=== PATIENT | male | born 1975 | race Caucasian/White ===

== ENCOUNTER 2021-08-05 23:46 | Inpatient (IN) | payer SELFPAY ==
[~2021-08-05] VITALS: Ht 177.8 cm; Wt 137.0 kg
[2021-08-06] VITALS (7 sets, daily range): BP systolic 102–162; BP diastolic 50–111
[2021-08-06] MEDS ORDERED: METOPROLOL TARTRATE INJ 1 MG/ML VIAL IV ONE (00:15)
[2021-08-06 00:31] LABS: BASOPHILS # (AUTO) 0.1 (0.0-0.1); BASOPHILS % 0.8 % (0.0-1.0); EOSINOPHILS # (AUTO) 0.2 (0.0-0.4); EOSINOPHILS % 2.1 % (0.0-6.0); HEMATOCRIT 25.6 % (38.2-49.6); LYMPHOCYTES # (AUTO) 2.1 (1.0-3.2); LYMPHOCYTES % 27.4 % (18.0-39.1); MEAN CORPUSCULAR HEMOGLOBIN 18.3 pg (28-32); MEAN CORPUSCULAR HGB CONC 26.2 g/dL (31-35); MEAN CORPUSCULAR VOLUME 69.9 fL (81-99); MONOCYTES % 12.9 % (4.4-11.3); NEUTROPHILS # (AUTO) 4.3 (2.1-6.9); NEUTROPHILS % 56.5 % (38.7-80.0); PLATELET COUNT 252 x10e3/uL (140-360); RED BLOOD COUNT 3.66 x10e6/uL (4.3-5.7)
[2021-08-06 00:35] LABS: INR 1.35; PARTIAL THROMBOPLASTIN TIME 33.5 seconds (23.8-35.5); PROTHROMBIN TIME 17.8 seconds (11.9-14.5)
[2021-08-06 00:43] LABS: HEMOGLOBIN 6.7 g/dL (14.0-18.0)
[2021-08-06 00:45] LABS: ALBUMIN 2.5 g/dL (3.5-5.0); ALBUMIN/GLOBULIN RATIO 0.5 (0.8-2.0); ANION GAP 15.4 mmol/L (8-16); CALCIUM 7.7 mg/dL (8.4-10.2); CREATININE, SERUM 0.76 mg/dL (0.72-1.25); POTASSIUM 3.4 mmol/L (3.5-5.1)
[2021-08-06 00:51] LABS: CREATINE KINASE MB 0.9 ng/mL (0-5.0)
[2021-08-06] MEDS ORDERED: SODIUM CHLORIDE 0.9% 250ML 250 ML IV ONE (01:00)
[2021-08-06] MEDS ORDERED: FUROSEMIDE INJ 10 MG/ML 2 ML VIAL IV PRN (01:00)
[2021-08-06] MEDS ORDERED: POTASSIUM CHLORIDE 20 MEQ TAB CR PO STA (01:19)
[2021-08-06] MEDS: ONDANSETRON HCL INJ 2MG/ML 2ML 2 MG/ML VIAL IV PRN ×3 (01:45→20:59)
[2021-08-06] MEDS: Morphine 4mg Syringe 4 MG/ML INJ IV PRN ×3 (01:45→20:59)
[2021-08-06 03:08] LABS: FERRITIN 7.39 ng/mL (21.81-274.66)
[2021-08-06 10:06] LABS: CREATINE KINASE MB 0.8 ng/mL (0-5.0)
[2021-08-06] MEDS ORDERED: SODIUM CHLORIDE 0.9% 250ML 250 ML ONE (10:32)
[2021-08-06] MEDS ORDERED: HYDRALAZINE HCL 20 MG/ML VIAL IV PRN (10:45)
[2021-08-06] MEDS ORDERED: ALBUMIN 25% 12.5GM 50ML 300 ML IV ONE (13:13)
[2021-08-06 16:53] LABS: BODY FLUID APPEARANCE SL.CLOUDY; BODY FLUID COLOR YELLOW; BODY FLUID TYPE PERITONEAL
[2021-08-06 16:54] LABS: RBC,BODY FLUID < 2000 cells/uL; WBC,BODY FLUID 88 cells/uL
[2021-08-06 17:30] LABS: HEMATOCRIT 23.4 % (38.2-49.6)
[2021-08-06 17:32] LABS: HEMOGLOBIN 6.4 g/dL (14.0-18.0)
[2021-08-06 17:55] LABS: CREATINE KINASE MB 0.8 ng/mL (0-5.0)
[2021-08-06] MEDS ORDERED: SODIUM CHLORIDE 0.9% 250ML 250 ML IV NR (18:45)
[2021-08-06 19:44] LABS: LYMPHOCYTES,BODY FLUID 20 %; MONO/MACROPHG,BODY FLUID 70 %; NEUTROPHILS,BODY FLUID 2 %; OTHER CELLS,BODY FLUID 8 %
[2021-08-07] VITALS (8 sets, daily range): BP systolic 94–127; BP diastolic 52–77
[2021-08-07] MEDS ORDERED: SPIRONOLACTONE 25 MG TAB PO ONE (00:30)
[2021-08-07] MEDS ORDERED: FUROSEMIDE INJ 10 MG/ML 4 ML VIAL IV ONE (00:30)
[2021-08-07] MEDS ORDERED: PHYTONADIONE 10 MG/ML AMP IV ONE ×2 (01:00→09:00)
[2021-08-07] MEDS ORDERED: PHYTONADIONE 10MG/ML 20 MG in SODIUM CHLORIDE 0.9% 100 ML SC ONE (01:00)
[2021-08-07] MEDS ORDERED: SODIUM CHLORIDE 0.9% 250ML 250 ML ONE (03:29)
[2021-08-07] MEDS: FUROSEMIDE INJ 10 MG/ML 4 ML VIAL IV SCH ×3 (06:28→17:34)
[2021-08-07] MEDS ORDERED: SODIUM CHLORIDE 0.9% 50ML 50 ML ONE (08:45)
[2021-08-07] MEDS ORDERED: SPIRONOLACTONE 25 MG TAB PO SCH (09:00)
[2021-08-07] MEDS ORDERED: FUROSEMIDE 20 MG TAB PO SCH (09:00)
[2021-08-07] MEDS ORDERED: PHYTONADIONE 10MG/ML 20 MG in SODIUM CHLORIDE 0.9% 100 ML IV ONE (09:00)
[2021-08-07] MEDS: IRON SUCROSE 100 MG in SODIUM CHLORIDE 0.9% 100 ML 100 ML IV SCH (09:01)
[2021-08-07] MEDS: SPIRONOLACTONE 25 MG TAB PO SCH ×2 (09:01→17:34)
[2021-08-07 09:59] LABS: BASOPHILS # (AUTO) 0.1 (0.0-0.1); BASOPHILS % 0.9 % (0.0-1.0); EOSINOPHILS # (AUTO) 0.1 (0.0-0.4); EOSINOPHILS % 2.1 % (0.0-6.0); HEMATOCRIT 29.2 % (38.2-49.6); HEMOGLOBIN 8.2 g/dL (14.0-18.0); LYMPHOCYTES # (AUTO) 1.8 (1.0-3.2); LYMPHOCYTES % 26.8 % (18.0-39.1); MEAN CORPUSCULAR HGB CONC 28.1 g/dL (31-35); MEAN CORPUSCULAR VOLUME 71.4 fL (81-99); MONOCYTES % 15.3 % (4.4-11.3); NEUTROPHILS # (AUTO) 3.6 (2.1-6.9); NEUTROPHILS % 54.6 % (38.7-80.0); PLATELET COUNT 184 x10e3/uL (140-360); RED BLOOD COUNT 4.09 x10e6/uL (4.3-5.7); RED CELL DISTRIBUTION WIDTH 19.4 % (11.7-14.4)
[2021-08-07 10:38] LABS: ALBUMIN 2.9 g/dL (3.5-5.0); ALBUMIN/GLOBULIN RATIO 0.9 (0.8-2.0); ANION GAP 11.1 mmol/L (8-16); CALCIUM 8.2 mg/dL (8.4-10.2); CREATININE, SERUM 0.8 mg/dL (0.72-1.25); POTASSIUM 3.1 mmol/L (3.5-5.1)
[2021-08-07 11:00] LABS: MAGNESIUM 1.5 MG/DL (1.3-2.1); PHOSPHORUS 2.9 MG/DL (2.3-4.7)
[2021-08-07] MEDS ORDERED: ALBUMIN 25% 12.5GM 50ML 200 ML IV ONE (11:16)
[2021-08-07 11:24] LABS: CREATINE KINASE MB 1.2 ng/mL (0-5.0)
[2021-08-07] MEDS ORDERED: ALBUMIN 25% 12.5GM 50ML 100 ML IV ONE (12:10)
[2021-08-07] MEDS: ACETAMINOPHEN/CODEINE 300MG - 30MG TAB PO PRN ×2 (13:13→21:18)
[2021-08-07] MEDS ORDERED: POTASSIUM CHLORIDE 20 MEQ TAB CR PO ONE (14:45)
[2021-08-07 17:06] LABS: BODY FLUID APPEARANCE SL.CLOUDY; BODY FLUID COLOR YELLOW; BODY FLUID TYPE PERITONEAL
[2021-08-07 17:08] LABS: RBC,BODY FLUID < 2000 cells/uL; WBC,BODY FLUID 141 cells/uL
[2021-08-07 19:51] LABS: LYMPHOCYTES,BODY FLUID 14 %; MONO/MACROPHG,BODY FLUID 62 %; NEUTROPHILS,BODY FLUID 1 %; OTHER CELLS,BODY FLUID 23 %
[2021-08-08] VITALS (9 sets, daily range): BP systolic 106–124; BP diastolic 56–73
[2021-08-08] MEDS: FUROSEMIDE INJ 10 MG/ML 4 ML VIAL IV SCH ×4 (00:27→17:48)
[2021-08-08] MEDS: Morphine 4mg Syringe 4 MG/ML INJ IV PRN ×4 (00:32→21:15)
[2021-08-08 06:27] LABS: HEMATOCRIT 30.6 % (38.2-49.6); HEMOGLOBIN 8.8 g/dL (14.0-18.0); LYMPHOCYTES % 29.7 % (18.0-39.1); MEAN CORPUSCULAR HEMOGLOBIN 20.4 pg (28-32); MEAN CORPUSCULAR HGB CONC 28.8 g/dL (31-35); MEAN CORPUSCULAR VOLUME 70.8 fL (81-99); NEUTROPHILS % 53.3 % (38.7-80.0); PLATELET COUNT 186 x10e3/uL (140-360); RED BLOOD COUNT 4.32 x10e6/uL (4.3-5.7); RED CELL DISTRIBUTION WIDTH 20.1 % (11.7-14.4)
[2021-08-08 06:28] LABS: BASOPHILS # (AUTO) 0.1 (0.0-0.1); BASOPHILS % 0.7 % (0.0-1.0); EOSINOPHILS # (AUTO) 0.1 (0.0-0.4); EOSINOPHILS % 1.9 % (0.0-6.0); MONOCYTES # (AUTO) 0.9 (0.2-0.8); MONOCYTES % 13.8 % (4.4-11.3); NEUTROPHILS # (AUTO) 3.6 (2.1-6.9)
[2021-08-08 06:58] LABS: ANION GAP 13.2 mmol/L (8-16); CALCIUM 8.7 mg/dL (8.4-10.2); CREATININE, SERUM 0.84 mg/dL (0.72-1.25); MAGNESIUM 1.6 MG/DL (1.3-2.1); PHOSPHORUS 3.3 MG/DL (2.3-4.7); POTASSIUM 3.2 mmol/L (3.5-5.1)
[2021-08-08] MEDS: SPIRONOLACTONE 25 MG TAB PO SCH ×2 (08:59→17:48)
[2021-08-08] MEDS: IRON SUCROSE 100 MG in SODIUM CHLORIDE 0.9% 100 ML 100 ML IV SCH (09:37)
[2021-08-08] MEDS: ONDANSETRON HCL INJ 2MG/ML 2ML 2 MG/ML VIAL IV PRN (10:29)
[2021-08-08] MEDS ORDERED: POTASSIUM CHLORIDE 20 MEQ TAB CR PO ONE (10:30)
[2021-08-09] VITALS (10 sets, daily range): BP systolic 110–132; BP diastolic 66–73
[2021-08-09] MEDS ORDERED: BISACODYL 5 MG TAB EC PO ONE ×3 (00:45→23:00)
[2021-08-09] MEDS: FUROSEMIDE INJ 10 MG/ML 4 ML VIAL IV SCH ×4 (01:05→17:46)
[2021-08-09] MEDS: Morphine 4mg Syringe 4 MG/ML INJ IV PRN ×2 (01:40→20:03)
[2021-08-09 06:24] LABS: BASOPHILS # (AUTO) 0.1 (0.0-0.1); BASOPHILS % 0.7 % (0.0-1.0); EOSINOPHILS # (AUTO) 0.2 (0.0-0.4); EOSINOPHILS % 2.3 % (0.0-6.0); HEMATOCRIT 30.8 % (38.2-49.6); HEMOGLOBIN 8.8 g/dL (14.0-18.0); LYMPHOCYTES # (AUTO) 1.9 (1.0-3.2); LYMPHOCYTES % 24.8 % (18.0-39.1); MEAN CORPUSCULAR HEMOGLOBIN 20.4 pg (28-32); MEAN CORPUSCULAR HGB CONC 28.6 g/dL (31-35); MEAN CORPUSCULAR VOLUME 71.3 fL (81-99); MONOCYTES # (AUTO) 1.3 (0.2-0.8); MONOCYTES % 17.6 % (4.4-11.3); NEUTROPHILS # (AUTO) 4.1 (2.1-6.9); NEUTROPHILS % 54.2 % (38.7-80.0); PLATELET COUNT 170 x10e3/uL (140-360); RED BLOOD COUNT 4.32 x10e6/uL (4.3-5.7); RED CELL DISTRIBUTION WIDTH 21.7 % (11.7-14.4)
[2021-08-09 06:38] LABS: ANION GAP 11.4 mmol/L (8-16); CALCIUM 8.4 mg/dL (8.4-10.2); CREATININE, SERUM 0.84 mg/dL (0.72-1.25); MAGNESIUM 1.6 MG/DL (1.3-2.1); PHOSPHORUS 4.2 MG/DL (2.3-4.7); POTASSIUM 3.4 mmol/L (3.5-5.1)
[2021-08-09] MEDS: SPIRONOLACTONE 25 MG TAB PO SCH ×2 (08:59→17:46)
[2021-08-09] MEDS: IRON SUCROSE 100 MG in SODIUM CHLORIDE 0.9% 100 ML 100 ML IV SCH (09:38)
[2021-08-09 09:46] LABS: ANISOCYTOSIS MODERATE; BAND NEUTROPHILS % (MANUAL) 1 %; EOSINOPHILS % (MANUAL) 1 % (0-7); LYMPHOCYTES % (MANUAL) 26 % (19-48); MONOCYTES % (MANUAL) 14 % (3.4-9.0); NEUTROPHILS % (MANUAL) 57 % (40-74); PLATELET ESTIMATE ADEQUATE; PLATELET MORPHOLOGY COMMENT FEW LARGE
[2021-08-09 09:47] LABS: HYPOCHROMASIA MODERATE; MICROCYTOSIS MODERATE; RBC MORPHOLOGY COMMENT ABNORMAL
[2021-08-09] MEDS ORDERED: ALBUMIN 25% 12.5GM 50ML 150 ML IV ONE (09:56)
[2021-08-09] MEDS: ACETAMINOPHEN/CODEINE 300MG - 30MG TAB PO PRN (12:48)
[2021-08-09] MEDS: THIAMINE HCL 100 MG TAB PO SCH (17:46)
[2021-08-09] MEDS: FOLIC ACID 1 MG TAB PO SCH (17:46)
[2021-08-09] MEDS: ONDANSETRON HCL INJ 2MG/ML 2ML 2 MG/ML VIAL IV PRN (20:03)
[2021-08-09] MEDS ORDERED: ALDACTONE25 MG PO (21:47)
[2021-08-09] MEDS ORDERED: LASIX20 MG PO (21:48)
[2021-08-09] MEDS ORDERED: POTASSIUM CHLORIDE 20 MEQ TAB CR PO ONE (23:00)
[2021-08-10] MEDS ORDERED: POTASSIUM CHLORIDE 20 MEQ TAB CR PO ONE (00:30)
[2021-08-10] MEDS: ONDANSETRON HCL INJ 2MG/ML 2ML 2 MG/ML VIAL IV PRN ×2 (01:00→06:24)
[2021-08-10] MEDS: Morphine 4mg Syringe 4 MG/ML INJ IV PRN ×2 (01:00→06:23)
[2021-08-10 01:03] VITALS: BP 139/85
[2021-08-10] MEDS ORDERED: FUROSEMIDE 40 MG TAB PO SCH (06:00)
[2021-08-10 06:01] VITALS: BP 125/73
[2021-08-10 06:43] LABS: BASOPHILS % 0.5 % (0.0-1.0); EOSINOPHILS # (AUTO) 0.2 (0.0-0.4); EOSINOPHILS % 1.9 % (0.0-6.0); HEMATOCRIT 34.1 % (38.2-49.6); HEMOGLOBIN 9.6 g/dL (14.0-18.0); LYMPHOCYTES % 25.5 % (18.0-39.1); MEAN CORPUSCULAR HEMOGLOBIN 20.3 pg (28-32); MEAN CORPUSCULAR HGB CONC 28.2 g/dL (31-35); MEAN CORPUSCULAR VOLUME 72.2 fL (81-99); MONOCYTES # (AUTO) 1.1 (0.2-0.8); MONOCYTES % 14.1 % (4.4-11.3); NEUTROPHILS # (AUTO) 4.6 (2.1-6.9); NEUTROPHILS % 57.7 % (38.7-80.0); PLATELET COUNT 192 x10e3/uL (140-360); RED BLOOD COUNT 4.72 x10e6/uL (4.3-5.7); RED CELL DISTRIBUTION WIDTH 22.7 % (11.7-14.4)
[2021-08-10 07:11] LABS: ALBUMIN 3.6 g/dL (3.5-5.0); ALBUMIN/GLOBULIN RATIO 0.9 (0.8-2.0); ANION GAP 12.9 mmol/L (8-16); CALCIUM 9.2 mg/dL (8.4-10.2); CREATININE, SERUM 0.98 mg/dL (0.72-1.25); POTASSIUM 3.9 mmol/L (3.5-5.1)
[2021-08-10 08:11] VITALS: BP_SYST 117; BP_SYST 125; BP_DIAS 68; BP_DIAS 73
[2021-08-10] MEDS: SPIRONOLACTONE 25 MG TAB PO SCH (08:51)
[2021-08-10] MEDS: IRON SUCROSE 100 MG in SODIUM CHLORIDE 0.9% 100 ML 100 ML IV SCH (08:51)
[2021-08-10] MEDS: FOLIC ACID 1 MG TAB PO SCH (08:52)
[2021-08-10] MEDS: THIAMINE HCL 100 MG TAB PO SCH (08:52)
[2021-08-10 11:13] VITALS: BP 114/68
[2021-08-10] MEDS ORDERED: VITAMIN B-1100 M1 PO (11:15)
[2021-08-10] MEDS ORDERED: FOLIC ACID-VIT1 EACH PO (11:15)
[2021-08-10 12:24] VITALS: BP 114/68
[2021-08-10 14:05] VITALS: BP 114/68
== END 2021-08-10 14:40 | disposition home or self-care (01) | DRG 434 ==
LOC: ER 23:55 → ERHOLD 08-06 00:55 → MED/SURG 08-06 08:53
PROVIDERS: ADMIT Internal Medicine; ATTEND Internal Medicine
PROC: 0W9G3ZZ Drainage of Peritoneal Cavity, Percutaneous Approach (ICD-10-PCS; principal; 2021-08-06)
PROC: 30233N1 Transfusion of Nonautologous Red Blood Cells into Peripheral Vein, Percutaneous Approach (ICD-10-PCS; 2021-08-06)
PROC: 0W9G3ZZ Drainage of Peritoneal Cavity, Percutaneous Approach (ICD-10-PCS; 2021-08-07)
PROC: 0W9G3ZZ Drainage of Peritoneal Cavity, Percutaneous Approach (ICD-10-PCS; 2021-08-07)
DX: K70.31 Alcoholic cirrhosis of liver with ascites (principal); I10 Essential (primary) hypertension; E87.6 Hypokalemia; R60.0 Localized edema; F10.11 Alcohol abuse, in remission; D63.8 Anemia in other chronic diseases classified elsewhere
CPT/HCPCS: 36415; 49083; 71045; 76700; 80048; 80053; 82040; 82105; 82550; 82553; 82607; 82728; 82746; 83540; 83690; 83735; 83880; 84100; 84157; 84466; 84484; 85014; 85018; 85025; 85045; 85610; 85730; 86850; 86900; 86920; 87070; 87205; 88112; 88305; 89051; 93005; 93306; 94799; 99284; C1729; J1756; J1940; J2270; J2405; J3411; J3430; J7050; P9016; U0002

== ENCOUNTER 2021-08-30 02:29 | Inpatient (IN) | payer SELFPAY ==
[~2021-08-30] VITALS: Ht 177.8 cm; Wt 91.4 kg
[2021-08-30] VITALS (8 sets, daily range): BP systolic 111–134; BP diastolic 63–76
[~2021-08-30 02:29] MED LIST: ALDACTONE25 MG PO; FOLIC ACID-VIT1 EACH PO; LASIX20 MG PO; VITAMIN B-1100 M1 PO
[2021-08-30] MEDS ORDERED: SODIUM CHLORIDE 0.9% 250ML 250 ML IV ONE ×2 (02:45→17:15)
[2021-08-30] MEDS ORDERED: PIPERACILLIN/TAZOBACTAM 3.375 GM in SODIUM CHLORIDE 0.9% 50ML 50 ML IV SCH (02:45)
[2021-08-30 03:03] LABS: BASOPHILS # (AUTO) 0.1 (0.0-0.1); BASOPHILS % 0.7 % (0.0-1.0); EOSINOPHILS # (AUTO) 0.2 (0.0-0.4); EOSINOPHILS % 1.3 % (0.0-6.0); LYMPHOCYTES # (AUTO) 2.3 (1.0-3.2); LYMPHOCYTES % 17.8 % (18.0-39.1); MEAN CORPUSCULAR VOLUME 78.5 fL (81-99); MONOCYTES # (AUTO) 1.1 (0.2-0.8); MONOCYTES % 8.5 % (4.4-11.3); NEUTROPHILS % 71.2 % (38.7-80.0); PLATELET COUNT 314 x10e3/uL (140-360); RED BLOOD COUNT 2.14 x10e6/uL (4.3-5.7); RED CELL DISTRIBUTION WIDTH 25.7 % (11.7-14.4)
[2021-08-30 03:06] LABS: HEMATOCRIT 16.8 % (38.2-49.6); HEMOGLOBIN 4.7 g/dL (14.0-18.0)
[2021-08-30] MEDS: Pantoprazole IV 40 MG in SODIUM CHLORIDE 0.9% 50ML 50 ML IV SCH ×5 (03:09→22:33)
[2021-08-30] MEDS: PIPERACILLIN/TAZOBACTAM 3.375 GM in SODIUM CHLORIDE 0.9% 50ML 50 ML IV SCH ×4 (03:09→22:33)
[2021-08-30 03:10] LABS: INR 1.4; PROTHROMBIN TIME 18.1 seconds (11.9-14.5)
[2021-08-30 03:18] LABS: LIPASE 124 U/L (8-78)
[2021-08-30] MEDS ORDERED: OCTREOTIDE ACETATE 500 MCG in SODIUM CHLORIDE 0.9% 250ML 250 ML IV STA (03:18)
[2021-08-30 03:20] LABS: ALBUMIN 2.8 g/dL (3.5-5.0); ALBUMIN/GLOBULIN RATIO 0.7 (0.8-2.0); ANION GAP 13.1 mmol/L (8-16); CALCIUM 8.5 mg/dL (8.4-10.2); CREATININE, SERUM 0.8 mg/dL (0.72-1.25); POTASSIUM 4.1 mmol/L (3.5-5.1)
[2021-08-30 03:38] LABS: CREATINE KINASE MB 0.6 ng/mL (0-5.0)
[2021-08-30] MEDS ORDERED: SODIUM CHLORIDE 0.9% 100 ML ONE (04:06)
[2021-08-30] MEDS ORDERED: IOPAMIDOL 370 MG/ML 200 ML INFUS..BTL INJ ONE (04:06)
[2021-08-30] MEDS ORDERED: SODIUM CHLORIDE 0.9% 250ML 250 ML ONE ×2 (08:32→14:27)
[2021-08-30 11:36] LABS: CREATINE KINASE 26 IU/L (30-200)
[2021-08-30] MEDS: OCTREOTIDE ACETATE 500 MCG in SODIUM CHLORIDE 0.9% 250ML 249 ML IV SCH (14:37)
[2021-08-30] MEDS ORDERED: POLYETHYLENE GLYCOL 3350 17 GM PACK PO PRN (16:30)
[2021-08-30] MEDS ORDERED: HYDRALAZINE HCL 20 MG/ML VIAL IV PRN (16:30)
[2021-08-30] MEDS ORDERED: TRAMADOL HCL 50 MG TAB PO PRN (16:30)
[2021-08-30] MEDS ORDERED: ONDANSETRON HCL INJ 2MG/ML 2ML 2 MG/ML VIAL IV PRN (16:30)
[2021-08-30] MEDS ORDERED: HYDROXYZINE HCL25 MG PO (16:47)
[2021-08-30] MEDS ORDERED: FUROSEMIDE20 MG PO (16:50)
[2021-08-30] MEDS ORDERED: ALDACTONE50 MG PO (16:50)
[2021-08-30 16:57] LABS: HEMATOCRIT 19.9 % (38.2-49.6)
[2021-08-30] MEDS ORDERED: FUROSEMIDE INJ 10 MG/ML 2 ML VIAL IV PRN (17:15)
[2021-08-30 17:21] LABS: CREATINE KINASE MB 0.8 ng/mL (0-5.0)
[2021-08-30] MEDS: ACETAMINOPHEN 325 MG TAB PO PRN (17:35)
[2021-08-31 00:57] VITALS: BP 108/63
[2021-08-31] MEDS ORDERED: PHYTONADIONE 10 MG/ML AMP IV ONE ×2 (01:00→09:00)
[2021-08-31] MEDS: OCTREOTIDE ACETATE 500 MCG in SODIUM CHLORIDE 0.9% 250ML 249 ML IV SCH ×4 (01:22→22:10)
[2021-08-31] MEDS ORDERED: SODIUM CHLORIDE 0.9% 50ML 50 ML ONE (01:26)
[2021-08-31 01:41] LABS: % IRON SATURATION 4 % (15-50); IRON 15 ug/dL (65-175); TOTAL IRON BINDING CAPACITY 377 ug/dL (261-478); TRANSFERRIN 269 mg/dL (174-364)
[2021-08-31] MEDS: PIPERACILLIN/TAZOBACTAM 3.375 GM in SODIUM CHLORIDE 0.9% 50ML 50 ML IV SCH ×4 (03:00→20:31)
[2021-08-31 03:31] LABS: INR 1.38; PROTHROMBIN TIME 17.9 seconds (11.9-14.5)
[2021-08-31 03:32] LABS: PARTIAL THROMBOPLASTIN TIME 26.8 seconds (23.8-35.5)
[2021-08-31] MEDS: Pantoprazole IV 40 MG in SODIUM CHLORIDE 0.9% 50ML 50 ML IV SCH ×5 (03:33→20:30)
[2021-08-31 03:44] LABS: CREATINE KINASE MB 0.8 ng/mL (0-5.0)
[2021-08-31 08:12] VITALS: BP 106/68
[2021-08-31 08:54] VITALS: BP 106/68
[2021-08-31] MEDS: PROPRANOLOL HCL 10 MG TAB PO SCH ×2 (08:54→20:31)
[2021-08-31] MEDS ORDERED: PROPRANOLOL HCL 10 MG TAB PO SCH (09:00)
[2021-08-31 10:06] LABS: BASOPHILS # (AUTO) 0.1 (0.0-0.1); EOSINOPHILS # (AUTO) 0.2 (0.0-0.4); EOSINOPHILS % 2.9 % (0.0-6.0); HEMATOCRIT 22.4 % (38.2-49.6); HEMOGLOBIN 7.1 g/dL (14.0-18.0); LYMPHOCYTES # (AUTO) 1.7 (1.0-3.2); LYMPHOCYTES % 27.2 % (18.0-39.1); MEAN CORPUSCULAR HEMOGLOBIN 25.1 pg (28-32); MEAN CORPUSCULAR HGB CONC 31.7 g/dL (31-35); MEAN CORPUSCULAR VOLUME 79.2 fL (81-99); MONOCYTES # (AUTO) 0.7 (0.2-0.8); NEUTROPHILS # (AUTO) 3.6 (2.1-6.9); NEUTROPHILS % 57.4 % (38.7-80.0); RED BLOOD COUNT 2.83 x10e6/uL (4.3-5.7); RED CELL DISTRIBUTION WIDTH 20.8 % (11.7-14.4)
[2021-08-31 10:20] LABS: PLATELET COUNT 176 x10e3/uL (140-360)
[2021-08-31 10:37] LABS: ALBUMIN 2.6 g/dL (3.5-5.0); ALBUMIN/GLOBULIN RATIO 0.8 (0.8-2.0); ANION GAP 10.4 mmol/L (8-16); CALCIUM 7.6 mg/dL (8.4-10.2); CREATININE, SERUM 0.87 mg/dL (0.72-1.25); POTASSIUM 3.4 mmol/L (3.5-5.1)
[2021-08-31 10:50] LABS: CREATINE KINASE MB 0.6 ng/mL (0-5.0)
[2021-08-31] MEDS ORDERED: SODIUM CHLORIDE 0.9% 250ML 250 ML ONE ×2 (10:59→20:22)
[2021-08-31 11:11] LABS: CHOL/HDL RATIO 5.9 (3.9-4.7); MAGNESIUM 1.6 MG/DL (1.3-2.1); PHOSPHORUS 4.6 MG/DL (2.3-4.7)
[2021-08-31 11:33] LABS: THYROID STIMULATING HORMONE 1.108 uIU/mL (0.350-4.940)
[2021-08-31 12:18] VITALS: BP 99/63
[2021-08-31 16:06] VITALS: BP 103/64
[2021-08-31] MEDS: ACETAMINOPHEN 325 MG TAB PO PRN ×2 (16:25→20:55)
[2021-08-31] MEDS ORDERED: MAGNESIUM SULFATE 2GM/50ML 50 ML IV ONE (16:30)
[2021-08-31] MEDS ORDERED: HYDROXYZINE HCL 25 MG TAB PO PRN (16:30)
[2021-08-31] MEDS ORDERED: SPIRONOLACTONE 25 MG TAB PO SCH (16:30)
[2021-08-31] MEDS ORDERED: SODIUM CHLORIDE 0.9% 250ML 250 ML IV ONE (16:30)
[2021-08-31 19:19] LABS: CREATINE KINASE MB 0.7 ng/mL (0-5.0)
[2021-08-31 20:00] VITALS: BP 116/76
[2021-09-01] VITALS (8 sets, daily range): BP systolic 102–127; BP diastolic 60–71
[2021-09-01] MEDS: Pantoprazole IV 40 MG in SODIUM CHLORIDE 0.9% 50ML 50 ML IV SCH ×5 (02:11→20:59)
[2021-09-01] MEDS: PIPERACILLIN/TAZOBACTAM 3.375 GM in SODIUM CHLORIDE 0.9% 50ML 50 ML IV SCH ×4 (02:13→15:00)
[2021-09-01] MEDS: ACETAMINOPHEN 325 MG TAB PO PRN ×4 (02:54→20:40)
[2021-09-01] MEDS: OCTREOTIDE ACETATE 500 MCG in SODIUM CHLORIDE 0.9% 250ML 249 ML IV SCH ×2 (06:42→16:17)
[2021-09-01 07:18] LABS: BASOPHILS # (AUTO) 0.1 (0.0-0.1); BASOPHILS % 1.1 % (0.0-1.0); EOSINOPHILS # (AUTO) 0.2 (0.0-0.4); EOSINOPHILS % 3.5 % (0.0-6.0); HEMATOCRIT 24.6 % (38.2-49.6); HEMOGLOBIN 7.7 g/dL (14.0-18.0); LYMPHOCYTES # (AUTO) 1.7 (1.0-3.2); LYMPHOCYTES % 27.5 % (18.0-39.1); MEAN CORPUSCULAR HGB CONC 31.3 g/dL (31-35); MEAN CORPUSCULAR VOLUME 79.9 fL (81-99); MONOCYTES # (AUTO) 0.8 (0.2-0.8); MONOCYTES % 12.8 % (4.4-11.3); NEUTROPHILS # (AUTO) 3.4 (2.1-6.9); NEUTROPHILS % 54.5 % (38.7-80.0); PLATELET COUNT 156 x10e3/uL (140-360); RED BLOOD COUNT 3.08 x10e6/uL (4.3-5.7)
[2021-09-01 07:25] LABS: INR 1.33; PROTHROMBIN TIME 17.4 seconds (11.9-14.5)
[2021-09-01 07:32] LABS: ANION GAP 10.7 mmol/L (8-16); CALCIUM 7.7 mg/dL (8.4-10.2); CREATININE, SERUM 0.79 mg/dL (0.72-1.25); MAGNESIUM 2.1 MG/DL (1.3-2.1); POTASSIUM 3.7 mmol/L (3.5-5.1)
[2021-09-01] MEDS: FOLIC ACID/CYANOCOB/PYRIDOXINE TAB PO SCH (08:56)
[2021-09-01] MEDS: THIAMINE HCL 100 MG TAB PO SCH (08:57)
[2021-09-01] MEDS: PROPRANOLOL HCL 10 MG TAB PO SCH ×2 (09:00→22:04)
[2021-09-01] MEDS ORDERED: IRON SUCROSE 100 MG in SODIUM CHLORIDE 0.9% 100 ML 100 ML IV SCH (09:00)
[2021-09-01] MEDS: IRON SUCROSE 100 MG in SODIUM CHLORIDE 0.9% 100 ML 100 ML IV SCH (20:15)
[2021-09-02] VITALS (7 sets, daily range): BP systolic 92–115; BP diastolic 43–68
[2021-09-02] MEDS ORDERED: SODIUM CHLORIDE 0.9% 250ML 250 ML ONE (02:12)
[2021-09-02] MEDS: Pantoprazole IV 40 MG in SODIUM CHLORIDE 0.9% 50ML 50 ML IV SCH ×4 (02:18→23:17)
[2021-09-02] MEDS: ACETAMINOPHEN 325 MG TAB PO PRN (03:38)
[2021-09-02] MEDS ORDERED: SODIUM CHLORIDE 0.9% 50ML 50 ML ONE (03:45)
[2021-09-02] MEDS: PIPERACILLIN/TAZOBACTAM 3.375 GM in SODIUM CHLORIDE 0.9% 50ML 50 ML IV SCH ×4 (03:45→21:31)
[2021-09-02] MEDS: OCTREOTIDE ACETATE 500 MCG in SODIUM CHLORIDE 0.9% 250ML 249 ML IV SCH (04:27)
[2021-09-02 06:09] LABS: BASOPHILS # (AUTO) 0.1 (0.0-0.1); BASOPHILS % 1.1 % (0.0-1.0); EOSINOPHILS # (AUTO) 0.2 (0.0-0.4); EOSINOPHILS % 3.6 % (0.0-6.0); HEMATOCRIT 25.6 % (38.2-49.6); HEMOGLOBIN 7.7 g/dL (14.0-18.0); LYMPHOCYTES # (AUTO) 1.9 (1.0-3.2); MEAN CORPUSCULAR HEMOGLOBIN 25.3 pg (28-32); MEAN CORPUSCULAR HGB CONC 30.1 g/dL (31-35); MEAN CORPUSCULAR VOLUME 84.2 fL (81-99); MONOCYTES % 14.5 % (4.4-11.3); NEUTROPHILS # (AUTO) 3.4 (2.1-6.9); NEUTROPHILS % 51.3 % (38.7-80.0); PLATELET COUNT 169 x10e3/uL (140-360); RED BLOOD COUNT 3.04 x10e6/uL (4.3-5.7); RED CELL DISTRIBUTION WIDTH 20.6 % (11.7-14.4)
[2021-09-02 06:27] LABS: ALBUMIN 2.7 g/dL (3.5-5.0); ALBUMIN/GLOBULIN RATIO 0.9 (0.8-2.0); ANION GAP 11.7 mmol/L (8-16); CALCIUM 7.9 mg/dL (8.4-10.2); CREATININE, SERUM 0.77 mg/dL (0.72-1.25); MAGNESIUM 1.9 MG/DL (1.3-2.1); POTASSIUM 3.7 mmol/L (3.5-5.1)
[2021-09-02] MEDS ORDERED: ONDANSETRON HCL 4 MG ORAL DISINTEGRATING TAB PO PRN (08:15)
[2021-09-02] MEDS: FOLIC ACID/CYANOCOB/PYRIDOXINE TAB PO SCH (08:44)
[2021-09-02] MEDS: PROPRANOLOL HCL 10 MG TAB PO SCH ×2 (08:44→20:31)
[2021-09-02] MEDS: THIAMINE HCL 100 MG TAB PO SCH (08:44)
[2021-09-02] MEDS ORDERED: ALBUMIN 25% 12.5GM 50ML 100 ML IV ONE (11:46)
[2021-09-02 14:20] LABS: BODY FLUID APPEARANCE CLOUDY; BODY FLUID COLOR YELLOW; BODY FLUID TYPE PERITONEAL
[2021-09-02 14:27] LABS: RBC,BODY FLUID 1000 cells/uL; WBC,BODY FLUID 279 cells/uL
[2021-09-02 15:54] LABS: LYMPHOCYTES,BODY FLUID 37 %; MONO/MACROPHG,BODY FLUID 58 %; NEUTROPHILS,BODY FLUID 5 %
[2021-09-02] MEDS: IRON SUCROSE 100 MG in SODIUM CHLORIDE 0.9% 100 ML 100 ML IV SCH (19:51)
[2021-09-02] MEDS: HYDROCODONE/APAP 5MG-325MG TAB PO PRN (20:32)
[2021-09-03] VITALS (7 sets, daily range): BP systolic 100–130; BP diastolic 50–82
[2021-09-03] MEDS: PIPERACILLIN/TAZOBACTAM 3.375 GM in SODIUM CHLORIDE 0.9% 50ML 50 ML IV SCH ×4 (03:15→22:00)
[2021-09-03] MEDS: OCTREOTIDE ACETATE 500 MCG in SODIUM CHLORIDE 0.9% 250ML 249 ML IV SCH ×2 (03:25→15:28)
[2021-09-03] MEDS: HYDROCODONE/APAP 5MG-325MG TAB PO PRN ×2 (04:19→20:40)
[2021-09-03] MEDS: Pantoprazole IV 40 MG in SODIUM CHLORIDE 0.9% 50ML 50 ML IV SCH ×4 (05:57→20:48)
[2021-09-03 06:49] LABS: BASOPHILS # (AUTO) 0.1 (0.0-0.1); BASOPHILS % 0.9 % (0.0-1.0); EOSINOPHILS # (AUTO) 0.2 (0.0-0.4); EOSINOPHILS % 3.6 % (0.0-6.0); HEMATOCRIT 25.1 % (38.2-49.6); HEMOGLOBIN 7.4 g/dL (14.0-18.0); LYMPHOCYTES # (AUTO) 1.8 (1.0-3.2); LYMPHOCYTES % 32.7 % (18.0-39.1); MEAN CORPUSCULAR HEMOGLOBIN 24.4 pg (28-32); MEAN CORPUSCULAR HGB CONC 29.5 g/dL (31-35); MEAN CORPUSCULAR VOLUME 82.8 fL (81-99); MONOCYTES # (AUTO) 0.7 (0.2-0.8); MONOCYTES % 12.8 % (4.4-11.3); NEUTROPHILS # (AUTO) 2.8 (2.1-6.9); NEUTROPHILS % 49.8 % (38.7-80.0); PLATELET COUNT 155 x10e3/uL (140-360); RED BLOOD COUNT 3.03 x10e6/uL (4.3-5.7); RED CELL DISTRIBUTION WIDTH 20.4 % (11.7-14.4)
[2021-09-03 07:29] LABS: MAGNESIUM 1.9 MG/DL (1.3-2.1)
[2021-09-03 07:49] LABS: CALCIUM 7.8 mg/dL (8.4-10.2); CREATININE, SERUM 0.82 mg/dL (0.72-1.25); PHOSPHORUS 3.6 MG/DL (2.3-4.7)
[2021-09-03] MEDS: FOLIC ACID/CYANOCOB/PYRIDOXINE TAB PO SCH (08:53)
[2021-09-03] MEDS: THIAMINE HCL 100 MG TAB PO SCH (08:53)
[2021-09-03] MEDS: PROPRANOLOL HCL 10 MG TAB PO SCH ×2 (09:00→21:50)
[2021-09-03 10:52] LABS: ANISOCYTOSIS MODERATE; HYPOCHROMASIA MODERATE; OVALOCYTES FEW; PLATELET ESTIMATE ADEQUATE; PLATELET MORPHOLOGY COMMENT NORMAL; POIKILOCYTOSIS SLIGHT; RBC MORPHOLOGY COMMENT ABNORMAL
[2021-09-03] MEDS ORDERED: EPHEDRINE SULFATE INJ 50 MG/ML VIAL ONE (12:16)
[2021-09-03] MEDS ORDERED: LIDOCAINE HCL 2% LOCAL INJ 5 ML SDV VIAL INJ ONE (12:16)
[2021-09-03] MEDS ORDERED: PROPOFOL IV EMULSION 10 MG/ML 20 ML VIAL ONE (12:16)
[2021-09-03] MEDS ORDERED: FENTANYL CITRATE/PF 100MCG/2 ML INJ ONE (13:34)
[2021-09-03] MEDS ORDERED: MIDAZOLAM HCL 2 MG/2 ML VIAL ONE (13:34)
[2021-09-03] MEDS: IRON SUCROSE 100 MG in SODIUM CHLORIDE 0.9% 100 ML 100 ML IV SCH (20:28)
[2021-09-04] VITALS (7 sets, daily range): BP systolic 98–155; BP diastolic 56–118
[2021-09-04] MEDS: PIPERACILLIN/TAZOBACTAM 3.375 GM in SODIUM CHLORIDE 0.9% 50ML 50 ML IV SCH ×4 (02:45→20:31)
[2021-09-04] MEDS: HYDROCODONE/APAP 5MG-325MG TAB PO PRN ×3 (02:45→16:45)
[2021-09-04] MEDS: Pantoprazole IV 40 MG in SODIUM CHLORIDE 0.9% 50ML 50 ML IV SCH ×5 (02:45→22:08)
[2021-09-04] MEDS: OCTREOTIDE ACETATE 500 MCG in SODIUM CHLORIDE 0.9% 250ML 249 ML IV SCH ×2 (02:50→12:26)
[2021-09-04] MEDS: THIAMINE HCL 100 MG TAB PO SCH (08:37)
[2021-09-04] MEDS: FOLIC ACID/CYANOCOB/PYRIDOXINE TAB PO SCH (08:37)
[2021-09-04] MEDS ORDERED: SODIUM CHLORIDE 0.9% 250ML 250 ML ONE (08:43)
[2021-09-04] MEDS: PROPRANOLOL HCL 10 MG TAB PO SCH ×2 (09:00→21:00)
[2021-09-04] MEDS: IRON SUCROSE 100 MG in SODIUM CHLORIDE 0.9% 100 ML 100 ML IV SCH (20:25)
[2021-09-04] MEDS ORDERED: FUROSEMIDE 40 MG TAB PO STA (23:26)
[2021-09-04] MEDS ORDERED: MIDODRINE 2.5 MG TAB PO STA (23:32)
[2021-09-04] MEDS ORDERED: BISACODYL 5 MG TAB EC PO ONE (23:49)
[2021-09-05] VITALS: BP 103/67
[2021-09-05] MEDS ORDERED: BISACODYL 5 MG TAB EC PO ONE
[2021-09-05 04:20] VITALS: BP 115/76
[2021-09-05 05:50] LABS: BASOPHILS # (AUTO) 0.1 (0.0-0.1); BASOPHILS % 1.1 % (0.0-1.0); EOSINOPHILS # (AUTO) 0.2 (0.0-0.4); HEMATOCRIT 29.4 % (38.2-49.6); HEMOGLOBIN 8.9 g/dL (14.0-18.0); LYMPHOCYTES % 32.5 % (18.0-39.1); MEAN CORPUSCULAR HEMOGLOBIN 24.5 pg (28-32); MEAN CORPUSCULAR HGB CONC 30.3 g/dL (31-35); MEAN CORPUSCULAR VOLUME 80.8 fL (81-99); MONOCYTES # (AUTO) 0.7 (0.2-0.8); MONOCYTES % 11.3 % (4.4-11.3); NEUTROPHILS # (AUTO) 3.2 (2.1-6.9); NEUTROPHILS % 51.6 % (38.7-80.0); PLATELET COUNT 164 x10e3/uL (140-360); RED BLOOD COUNT 3.64 x10e6/uL (4.3-5.7); RED CELL DISTRIBUTION WIDTH 19.9 % (11.7-14.4)
[2021-09-05] MEDS ORDERED: FUROSEMIDE 40 MG TAB PO SCH (06:00)
[2021-09-05 06:14] LABS: ALBUMIN 2.8 g/dL (3.5-5.0); ALBUMIN/GLOBULIN RATIO 0.8 (0.8-2.0); ANION GAP 10.6 mmol/L (8-16); CALCIUM 8.5 mg/dL (8.4-10.2); CREATININE, SERUM 0.83 mg/dL (0.72-1.25); POTASSIUM 3.6 mmol/L (3.5-5.1)
[2021-09-05] MEDS ORDERED: PANTOPRAZOLE SOD 40 MG TABEC PO SCH (07:30)
[2021-09-05] MEDS ORDERED: MIDODRINE 2.5 MG TAB PO SCH (08:00)
[2021-09-05 08:16] VITALS: BP 92/53
[2021-09-05 08:34] VITALS: BP 92/53
[2021-09-05] MEDS: HYDROCODONE/APAP 5MG-325MG TAB PO PRN (08:45)
[2021-09-05] MEDS: FOLIC ACID/CYANOCOB/PYRIDOXINE TAB PO SCH (08:49)
[2021-09-05] MEDS: PROPRANOLOL HCL 10 MG TAB PO SCH (08:49)
[2021-09-05] MEDS: THIAMINE HCL 100 MG TAB PO SCH (08:49)
[2021-09-05] MEDS ORDERED: SPIRONOLACTONE 25 MG TAB PO SCH ×2 (09:00)
[2021-09-05] MEDS ORDERED: MIDODRINE HCL2.5 MG PO (10:17)
[2021-09-05] MEDS ORDERED: ONDANSETRON ODT4 MG PO (10:17)
[2021-09-05] MEDS ORDERED: INDERAL10 MG PO (10:17)
[2021-09-05] MEDS ORDERED: ALDACTONE50 MG PO (10:22)
[2021-09-05] MEDS ORDERED: FUROSEMIDE20 MG PO (10:22)
== END 2021-09-05 12:23 | disposition home or self-care (01) | DRG 432 ==
LOC: ER 02:33 → ERHOLD 03:36 → MED/SURG 06:15
PROVIDERS: ADMIT Internal Medicine; ATTEND Internal Medicine
PROC: 30233N1 Transfusion of Nonautologous Red Blood Cells into Peripheral Vein, Percutaneous Approach (ICD-10-PCS; 2021-08-30)
PROC: 30233K1 Transfusion of Nonautologous Frozen Plasma into Peripheral Vein, Percutaneous Approach (ICD-10-PCS; 2021-08-31)
PROC: 0W9G3ZZ Drainage of Peritoneal Cavity, Percutaneous Approach (ICD-10-PCS; 2021-09-02)
PROC: 02HV33Z Insertion of Infusion Device into Superior Vena Cava, Percutaneous Approach (ICD-10-PCS; 2021-09-02)
PROC: 30243K1 Transfusion of Nonautologous Frozen Plasma into Central Vein, Percutaneous Approach (ICD-10-PCS; 2021-09-02)
PROC: 06L38CZ Occlusion of Esophageal Vein with Extraluminal Device, Via Natural or Artificial Opening Endoscopic (ICD-10-PCS; 2021-09-03)
PROC: 0DB68ZX Excision of Stomach, Via Natural or Artificial Opening Endoscopic, Diagnostic (ICD-10-PCS; principal; 2021-09-03 14:00)
PROC: 0DB78ZX Excision of Stomach, Pylorus, Via Natural or Artificial Opening Endoscopic, Diagnostic (ICD-10-PCS; 2021-09-03 14:00)
DX: K70.31 Alcoholic cirrhosis of liver with ascites (principal); I85.11 Secondary esophageal varices with bleeding; K76.6 Portal hypertension; D62 Acute posthemorrhagic anemia; F10.20 Alcohol dependence, uncomplicated; Y90.0 Blood alcohol level of less than 20 mg/100 ml; K31.89 Other diseases of stomach and duodenum; E27.9 Disorder of adrenal gland, unspecified; R00.1 Bradycardia, unspecified; F32.A Depression, unspecified; I10 Essential (primary) hypertension; Z20.822 Contact with and (suspected) exposure to COVID-19; E83.42 Hypomagnesemia; T40.425A Adverse effect of tramadol, initial encounter; R06.09 Other forms of dyspnea
CPT/HCPCS: 36415; 36569; 43239; 43255; 49083; 71045; 74174; 74470; 80048; 80053; 80061; 80320; 82040; 82270; 82550; 82553; 82607; 82746; 83036; 83540; 83690; 83735; 84100; 84157; 84443; 84466; 84484; 85014; 85018; 85025; 85045; 85610; 85730; 86850; 86900; 86920; 87070; 87205; 88112; 88305; 88312; 89051; 93005; 94799; 99284; J0360; J1756; J1940; J2001; J2250; J2353; J2543; J3010; J3410; J3411; J3430; J3475; J7050; P9016; P9017; Q9967; U0002

== ENCOUNTER 2022-06-20 20:36 | Emergency (ER) | payer SELFPAY ==
[~2022-06-20] VITALS: Ht 177.8 cm; Wt 118.4 kg
[~2022-06-20 20:36] MED LIST changes: +ALDACTONE50 MG PO; +FUROSEMIDE20 MG PO; +HYDROXYZINE HCL25 MG PO; +INDERAL10 MG PO; +MIDODRINE HCL2.5 MG PO; +ONDANSETRON ODT4 MG PO
[2022-06-20 21:42] LABS: BASOPHILS # (AUTO) 0.1 (0.0-0.1); BASOPHILS % 0.8 % (0.0-1.0); EOSINOPHILS # (AUTO) 0.1 (0.0-0.4); EOSINOPHILS % 0.7 % (0.0-6.0); LYMPHOCYTES # (AUTO) 1.2 (1.0-3.2); LYMPHOCYTES % 13.3 % (18.0-39.1); MEAN CORPUSCULAR HGB CONC 30.2 g/dL (31-35); MEAN CORPUSCULAR VOLUME 79.5 fL (81-99); MONOCYTES # (AUTO) 0.7 (0.2-0.8); MONOCYTES % 7.6 % (4.4-11.3); NEUTROPHILS % 77.3 % (38.7-80.0); PLATELET COUNT 189 x10e3/uL (140-360); RED BLOOD COUNT 5.41 x10e6/uL (4.3-5.7); RED CELL DISTRIBUTION WIDTH 15.4 % (11.7-14.4)
[2022-06-20] MEDS ORDERED: PROMETHAZINE HCL (IM) 25 MG/ML VIAL IM ONE ×2 (21:58→22:00)
[2022-06-20 22:01] LABS: ALBUMIN 3.7 g/dL (3.5-5.0); ALBUMIN/GLOBULIN RATIO 0.7 (0.8-2.0); ANION GAP 18.7 mmol/L (8-16); CREATININE, SERUM 0.89 mg/dL (0.72-1.25); POTASSIUM 3.7 mmol/L (3.5-5.1)
[2022-06-20 22:12] LABS: CALCIUM 9.1 mg/dL (8.4-10.2)
[2022-06-20] MEDS ORDERED: HALOPERIDOL LACTATE 5 MG/ML VIAL IM ONE (22:30)
[2022-06-20] MEDS ORDERED: OCTREOTIDE ACETATE 500 MCG in SODIUM CHLORIDE 0.9% 250ML 250 ML IV SCH (22:30)
[2022-06-20 22:39] LABS: CREATINE KINASE MB 0.9 ng/mL (0-5.0)
[2022-06-20] MEDS ORDERED: FENTANYL CITRATE/PF 100MCG/2 ML INJ IV ONE (23:00)
[2022-06-20 23:27] LABS: INR 1.31; PARTIAL THROMBOPLASTIN TIME 33.1 seconds (23.8-35.5); PROTHROMBIN TIME 17.4 seconds (11.9-14.5)
[2022-06-21] MEDS ORDERED: PROMETHAZINE 12.5MG/ NACL 0.9% 12.5 MG/50 ML BAG IV ONE (00:30)
[2022-06-21] MEDS ORDERED: SODIUM CHLORIDE 0.9% 100 ML ONE (00:36)
== END 2022-06-21 00:30 | disposition other institution (70) ==
LOC: ER 20:45
DX: K92.0 Hematemesis (principal); K74.60 Unspecified cirrhosis of liver; R18.8 Other ascites; Z20.822 Contact with and (suspected) exposure to COVID-19
CPT/HCPCS: 36415; 71045; 80053; 80320; 82550; 82553; 83690; 84484; 85025; 85610; 85730; 93005; 99284; C9113; J1630; J2353; J2550 ×2; J3010; J7050 ×2; U0002

== ENCOUNTER 2024-07-11 20:08 | Emergency (ER) | payer MEDICAID, OTHER ==
[~2024-07-11] VITALS: Ht 177.8 cm; Wt 118.4 kg
[2024-07-11] MEDS ORDERED: SODIUM CHLORIDE 0.9% 1000ML 1,000 ML IV STA (20:39)
[2024-07-11] MEDS: ONDANSETRON HCL INJ 2MG/ML 2ML 2 MG/ML VIAL IV STA (20:57)
[2024-07-11] MEDS: ACETAMINOPHEN 325 MG TAB PO STA (20:58)
[2024-07-11] MEDS: SODIUM CHLORIDE 0.9% 1000ML 1,000 ML IV STA (20:58)
[2024-07-11 20:59] LABS: BASOPHILS # (AUTO) 0.1 (0.0-0.1); BASOPHILS % 1.4 % (0.0-1.0); EOSINOPHILS # (AUTO) 0.2 (0.0-0.4); EOSINOPHILS % 3.4 % (0.0-6.0); HEMATOCRIT 35.1 % (38.2-49.6); HEMOGLOBIN 10.4 g/dL (14.0-18.0); LYMPHOCYTES % 20.5 % (18.0-39.1); MEAN CORPUSCULAR HEMOGLOBIN 21.4 pg (28-32); MEAN CORPUSCULAR HGB CONC 29.6 g/dL (31-35); MEAN CORPUSCULAR VOLUME 72.2 fL (81-99); MONOCYTES # (AUTO) 0.6 (0.2-0.8); MONOCYTES % 11.2 % (4.4-11.3); NEUTROPHILS # (AUTO) 3.1 (2.1-6.9); NEUTROPHILS % 63.1 % (38.7-80.0); PLATELET COUNT 160 x10e3/uL (140-360); RED BLOOD COUNT 4.86 x10e6/uL (4.3-5.7); RED CELL DISTRIBUTION WIDTH 19.7 % (11.7-14.4); WHITE BLOOD COUNT 4.98 x10e3/uL (4.8-10.8)
[2024-07-11 21:10] LABS: CLARITY,URINE SL CLOUDY (CLEAR); COLOR,URINE YELLOW (YELLOW); LEUKOCYTE ESTERASE ,URINE NEGATIVE (NEGATIVE); NITRITE,URINE NEGATIVE (NEGATIVE); PH,URINE 6.5 (5 - 7); PROTEIN,URINE DIPSTICK TRACE (NEGATIVE)
[2024-07-11 21:11] LABS: BILIRUBIN,URINE NEGATIVE (NEGATIVE); GLUCOSE, URINE NEGATIVE (NEGATIVE); KETONES,URINE NEGATIVE (NEGATIVE); URINE UROBILINOGEN 2 mg/dL (0.2 - 1)
[2024-07-11 21:18] LABS: ALBUMIN 3.4 g/dL (3.5-5.0); ALBUMIN/GLOBULIN RATIO 0.9 (0.8-2.0); ANION GAP 14.2 mmol/L (8-16); BILIRUBIN,TOTAL 0.6 mg/dL (0.2-1.2); CALCIUM 8.4 mg/dL (8.4-10.2); CREATININE, SERUM 0.79 mg/dL (0.72-1.25); POTASSIUM 4.2 mmol/L (3.5-5.1)
[2024-07-11 21:23] LABS: BACTERIA,URINE FEW /HPF
[2024-07-11 21:24] LABS: MUCUS,URINE MANY (RARE)
[2024-07-11] MEDS ORDERED: IOPAMIDOL 370 MG/ML 100 ML INFUS..BTL INJ ONE (21:25)
[2024-07-11 22:24] LABS: AMPHETAMINES SCREEN,URINE NEGATIVE (NEGATIVE); BENZODIAZEPINES SCREEN,URINE NEGATIVE (NEGATIVE); CANNABINOIDS SCREEN,URINE NEGATIVE (NEGATIVE); COCAINE SCREEN,URINE NEGATIVE (NEGATIVE); METHADONE SCREEN, URINE NEGATIVE (NEGATIVE); OPIATES SCREEN,URINE NEGATIVE (NEGATIVE); PHENCYCLIDINE SCREEN,URINE NEGATIVE (NEGATIVE)
[2024-07-11 23:05] VITALS: PULSE 86; RESP 17; TEMP 98.3
[2024-07-11 23:26] VITALS: BP 160/101; PULSE 87; RESP 18; TEMP 98.5; O2SAT 100
[2024-07-11] MEDS ORDERED: AMOX TR-K CLV1 EAC2 PO (23:29)
[2024-07-11] MEDS ORDERED: DICYCLOMINE HCL10 MG PO (23:29)
== END 2024-07-11 23:35 | disposition home or self-care (01) ==
LOC: ER 20:16
DX: R50.9 Fever, unspecified (principal); R18.8 Other ascites; K74.60 Unspecified cirrhosis of liver; R10.31 Right lower quadrant pain; N20.0 Calculus of kidney; I10 Essential (primary) hypertension; K45.8 Other specified abdominal hernia without obstruction or gangrene; F17.210 Nicotine dependence, cigarettes, uncomplicated
CPT/HCPCS: 36415; 74177; 80053; 80307; 80320; 81001; 83605; 83690; 85025; 87040; 99284; J2405; J2543; J7030; Q9967